=== PATIENT | female | born 1960 | race Caucasian/White ===

== ENCOUNTER 2017-10-09 08:31 | Day surgery (SDC) | payer OTHER ==
[~2017-10-09] VITALS: Ht 167.6 cm; Wt 66.7 kg
[~2017-10-09 08:31] MED LIST: Advil200 M1 PO
== END 2017-10-09 22:49 | disposition home or self-care (01) ==
LOC: ORSCMMR 08:31
PROVIDERS: Internal Medicine Gastroenterology
PROC: 0DBP8ZX Excision of Rectum, Via Natural or Artificial Opening Endoscopic, Diagnostic (ICD-10-PCS; principal; 2017-10-09 09:30)
PROC: 0DBC8ZX Excision of Ileocecal Valve, Via Natural or Artificial Opening Endoscopic, Diagnostic (ICD-10-PCS; principal; 2017-10-09 09:30)
PROC: 0DBN8ZX Excision of Sigmoid Colon, Via Natural or Artificial Opening Endoscopic, Diagnostic (ICD-10-PCS; principal; 2017-10-09 09:30)
DX: K62.5 Hemorrhage of anus and rectum (principal); D12.2 Benign neoplasm of ascending colon; K62.1 Rectal polyp; K63.5 Polyp of colon; K64.4 Residual hemorrhoidal skin tags; K64.8 Other hemorrhoids; K57.30 Diverticulosis of large intestine without perforation or abscess without bleeding; Z86.010 Personal history of colon polyps; F17.210 Nicotine dependence, cigarettes, uncomplicated
CPT/HCPCS: 88305; J7120

== ENCOUNTER → 2021-12-13 | Outpatient (CLI) | payer OTHER ==
[2021-12-15 10:11] LABS: HPV 16 Negative (Negative); HPV 18 Negative (Negative); HPV OTHER HR TYPES Negative (Negative)
== END | disposition home or self-care (01) ==
LOC: LAB SHORT 11:54
PROVIDERS: Student in an Organized Health Care Education/Training Program
DX: Z12.4 Encounter for screening for malignant neoplasm of cervix (principal)
CPT/HCPCS: 87624; G0145

== ENCOUNTER → 2022-01-10 | Outpatient (CLI) | payer OTHER | END | disposition home or self-care (01) | LOC: LAB SHORT 07:43 → PLD 07:43 | DX: D04.61 Carcinoma in situ of skin of right upper limb, including shoulder (principal) | CPT/HCPCS: 88305 ==

== ENCOUNTER → 2022-02-07 | Outpatient (CLI) | payer OTHER ==
[2022-02-07 15:29] LABS: Source, Urine Clean Catch
[2022-02-07 17:21] LABS: Appearance, Urine Clear (Clear); Bilirubin, Urine Neg (Neg); Blood, Urine Neg (Neg); Color, Urine Yellow (P-Yellow); Glucose Qualitative, Urine Neg (Neg); Ketones, Urine 1+ (Neg); Leukocyte Esterase, Urine 1+ (Neg); Nitrite, Urine Neg (Neg); Protein, Urine 2+ (Neg); Specific Gravity, Urine 1.025 (1.003-1.022); Urobilinogen, Urine 1+ (Normal)
[2022-02-07 17:51] LABS: Bacteria Mod /hpf; Red Blood Cells, Urine 0-2 /hpf (0-2); Squamous Epithelial Cells Few /hpf (Few)
== END | disposition home or self-care (01) ==
LOC: LAB SHORT 15:23
PROVIDERS: Obstetrics & Gynecology
DX: N39.3 Stress incontinence (female) (male) (principal)
CPT/HCPCS: 81001

== ENCOUNTER → 2022-04-19 | Outpatient (CLI) | payer OTHER | END | disposition home or self-care (01) | LOC: LAB 08:52 → LAB SHORT 08:52 | DX: Z72.0 Tobacco use (principal) | CPT/HCPCS: 88108 ==

== ENCOUNTER → 2022-04-19 | Outpatient (CLI) | payer OTHER | END | disposition home or self-care (01) | LOC: PLD 10:38 → LAB SHORT 10:38 | DX: N95.0 Postmenopausal bleeding (principal) | CPT/HCPCS: 88305 ==

== ENCOUNTER 2023-06-06 10:14 | Inpatient (IN) | payer OTHER ==
[~2023-06-06] VITALS: Ht 167.6 cm; Wt 71.3 kg
[2023-06-06 10:47] LABS: BASOPHILS ABSOLUTE AUTO 0.08 K/mm3 (0.00-0.23); BASOPHILS PERCENT AUTO 1 % (0-2); EOSINOPHILS ABSOLUTE AUTO 0.12 K/mm3 (0.00-0.68); EOSINOPHILS PERCENT AUTO 2 % (0-6); Hematocrit 44.2 % (33.0-51.0); Hemoglobin 14.6 g/dL (11.5-16.0); IMMATURE GRAN ABSOLUTE AUTO 0.03 K/mm3 (0.00-0.10); IMMATURE GRAN PERCENT AUTO 0 % (0-1); LYMPHOCYTES ABSOLUTE AUTO 0.97 K/mm3 (0.84-5.20); LYMPHOCYTES PERCENT AUTO 12 % (21-46); MONOCYTES ABSOLUTE AUTO 0.14 K/mm3 (0.16-1.47); MONOCYTES PERCENT AUTO 2 % (4-13); Mean Corpuscular HGB 28.6 pg (26.0-34.0); Mean Corpuscular Volume 87 fL (80-100); Mean Platelet Volume 10.3 fL (9.1-12.4); NEUTROPHILS ABSOLUTE AUTO 6.84 K/mm3 (1.96-9.15); NEUTROPHILS PERCENT AUTO 84 % (41-73); Platelet Count 262 K/mm3 (150-400); RDW Coefficient Variation 13.2 % (11.7-14.2); RDW Standard Deviation 41.1 fL (35.1-46.3); White Blood Cell Count 8.18 K/mm3 (4.00-11.30)
[2023-06-06] MEDS ORDERED: STIOLTO RESPIMAT4 G1 (11:27)
[2023-06-06] MEDS ORDERED: Ventolin/Prove6.7 GM INH (11:27)
[2023-06-06] MEDS ORDERED: LORA10ER PO (11:28)
[2023-06-06] MEDS ORDERED: Cyclobenzaprine5 MG (11:28)
[2023-06-06] MEDS ORDERED: MONT10T PO (11:29)
[2023-06-06] MEDS ORDERED: ALBU2.5V5 (11:29)
[2023-06-06 12:18] LABS: Bun/Creatinine Ratio 16.3 (12.0-20.0); Calcium, Blood 9.5 mg/dL (8.5-10.1); Creatinine, Blood 0.98 mg/dL (0.40-1.00)
[2023-06-06 12:19] LABS: Albumin, Blood 4.1 g/dL (3.4-5.0); Albumin/Globulin Ratio 1.2 (0.8-1.8); Bilirubin, Total 0.5 mg/dL (0.1-1.0); Globulin, Blood 3.4 g/dL (2.2-4.0); Total Protein, Blood 7.5 g/dL (6.4-8.2)
[2023-06-06 19:30] VITALS: BP 150/84
[2023-06-06 19:49] LABS: Adenovirus Not Detected (NOT DETECT); Bordetella pertussis Not Detected (NOT DETECT); Chlamydophila pneumoniae Not Detected (NOT DETECT); Coronavirus 229E Not Detected (NOT DETECT); Coronavirus HKU1 Not Detected (NOT DETECT); Coronavirus NL63 Not Detected (NOT DETECT); Coronavirus OC43 Not Detected (NOT DETECT); Human Metapneumovirus Not Detected (NOT DETECT); Human Rhinovirus/Enterovirus Not Detected (NOT DETECT); Influenza A/2009-H1 Not Detected (NOT DETECT); Influenza A/H1 Not Detected (NOT DETECT); Influenza A/H3 Not Detected (NOT DETECT); Influenza B Not Detected (NOT DETECT); Mycoplasma pneumoniae Not Detected (NOT DETECT); Parainfluenza Virus 1 Not Detected (NOT DETECT); Parainfluenza Virus 2 Not Detected (NOT DETECT); Parainfluenza Virus 3 Not Detected (NOT DETECT); Parainfluenza Virus 4 Not Detected (NOT DETECT); Respiratory Syncytial Virus Not Detected (NOT DETECT); SARS-Cov-2 (COVID-19), BioFire Not Detected (NOT DETECT)
[2023-06-07 04:12] VITALS: BP 163/74
--- NOTE | 2023-06-07 06:43 | NUR ---
LATE ENTRY ADMISSION NOTE. PT ARRIVED FROM ER TO SURGICAL FLOOR AT 1925. PT SETTLED AND ORIENTED TO THE ROOM. PT ENDORSES SMOKING AND HAD A BEHAVIORAL TECHNICIAN PRESENT. BEHAVIORAL TECHNICIAN LOCKED IN DRAWER UNTIL IT WAS GIVEN TO DAUGHTER BARBARA TO TAKE HOME. PT WAS ANXIOUS ON ARRIVAL BUT CALMED WITH RAISING THE HOB AND APPLYING O2 VIA NASAL CANULA. PT'S SATS REMAINED ABOVE 90% ON 2 LITERS. PT DENIES CHEST PAIN. PT HAS EXPIRATORY WHEEZES BUT BREATHING IMPROVES WITH SOLU-MEDROL. PT HAS HAD PAIN IN HER RIBS AND BACK FROM COUGHING SOME RELIEF WITH TYLENOL AND KPAD. PT GIVEN ROBITUSSIN FOR COUGH X1. PT RESTED THIS SHIFT WITH EYES CLOSED AND CALL LIGHT IN REACH.
[2023-06-07 07:34] VITALS: BP 162/84
[2023-06-07 14:25] VITALS: BP 126/63
--- NOTE | 2023-06-07 17:43 | NUR ---
SUMMARY PT W/ EXPIRATORY WHEEZES T/O AND NPC T/O THE DAY, DENIED ANY SOB, 2L O2 VIA NC, INDEPENDENT IN ROOM, HAD HOME O2 EVAL TODAY, TOOK A NAP THIS AFTERNOON, NO ACUTE CHANGES THIS SHIFT.
[2023-06-07 19:18] VITALS: BP 142/75
[2023-06-08 03:41] VITALS: BP 162/82
--- NOTE | 2023-06-08 06:27 | NUR ---
PT VSS T/O NIGHT. SATS TRENDING 92% ON 2LO2 NC. LUNGS TIGHT/WHEEZY T/O. PT CONT TO HAVE HACKING NON PROD COUGH. PT DENIES SOB AT REST, DOES BECOME DYPSNEIC W/ACTIVITY AND W/SPEAKING AT TIMES. RT CALLED FOR PRN TX X3 THIS SHIFT. IV SOLUMEDEROL CONT. PT PLEASANT AND COOPERATIVE W/CARE.
[2023-06-08 07:15] VITALS: BP 146/81
[2023-06-08] MEDS ORDERED: ALBU2.5V5 INH (09:49)
[2023-06-08] MEDS ORDERED: Prednisone10 MG PO (09:51)
--- NOTE | 2023-06-08 10:27 | NUR ---
PT C/O SOB AFTER COUGHING EPISODE, DR. REED HERE TO SEE PT, CANCELLED DC ORDERS FOR TODAY, RT CALLED FOR NEB TX, PT PLACED ON CONT. OXIMETRY MONITOR, CONT. TO MONITOR FOR ANY CHANGES.
[2023-06-08 11:01] LABS: Bicarbonate Venous 25.5 mmol/L (24.0-30.0); pH Blood Venous 7.44 (7.34-7.37)
--- NOTE | 2023-06-08 12:30 | NUR ---
PT REPORTS BREATHING "BETTER," APPEARS TO BE IN NO DISTRESS, SATS 97% ON 2L VIA NC, PT STATES SHE WAS ABLE TO EAT AND REST, CONT. TO MONITOR FOR ANY CHANGES.
[2023-06-08 15:28] VITALS: BP 155/75
--- NOTE | 2023-06-08 17:20 | NUR ---
SUMMARY PT HAD SOB AND DYSPNEA THIS AM AND INCREASED COUGHING, CANCELLED DC THIS AM, SEE ORDERS, PT HAD ATIVAN, MG SULFATE, AND 125MG SOLUMEDROL GIVEN, PT REPORTED GOOD RELIEF OF DYSPNEA, PT WAS ABLE TO REST AND EAT, TOOK A NAP THIS AFTERNOON, PT NOW SITTING UP FOR DINNER, DENIES ANY SOB, APPEARS TO BE IN NO DISTRESS, NO OTHER CHANGES THIS SHIFT.
[2023-06-08 19:27] VITALS: BP 141/77
--- NOTE | 2023-06-09 03:50 | NUR ---
SHIFT SUMMARY PT WITH X1 COUGHING FIT T/O NIGHT. TESSALON PEARLS GIVEN PRN FOR NONPRODUCTIVE COUGH. NEBULIZER TREATMENTS PER RT. WHEEZES HEARD ON LEFT LUNG. PT ON 2L O2 VIA NC WITH CONT BIOX IN PLACE. PT DOES GET SOB WITH EXERTION, BUT RECOVERS QUICKLY WITH REST AND IS INDEP IN ROOM. USES CALL LIGHT APPROPRIATELY. PT WANTING TO DISCHARGE HOME TODAY.
[2023-06-09 04:12] LABS: BASOPHILS ABSOLUTE AUTO 0.03 K/mm3 (0.00-0.23); BASOPHILS PERCENT AUTO 0 % (0-2); EOSINOPHILS PERCENT AUTO 0 % (0-6); Hematocrit 42.5 % (33.0-51.0); Hemoglobin 13.6 g/dL (11.5-16.0); IMMATURE GRAN ABSOLUTE AUTO 0.21 K/mm3 (0.00-0.10); IMMATURE GRAN PERCENT AUTO 2 % (0-1); LYMPHOCYTES ABSOLUTE AUTO 1.85 K/mm3 (0.84-5.20); LYMPHOCYTES PERCENT AUTO 14 % (21-46); MONOCYTES ABSOLUTE AUTO 0.83 K/mm3 (0.16-1.47); MONOCYTES PERCENT AUTO 6 % (4-13); Mean Corpuscular HGB 28.6 pg (26.0-34.0); Mean Corpuscular Volume 90 fL (80-100); Mean Platelet Volume 10.6 fL (9.1-12.4); NEUTROPHILS ABSOLUTE AUTO 10.63 K/mm3 (1.96-9.15); NEUTROPHILS PERCENT AUTO 79 % (41-73); Platelet Count 243 K/mm3 (150-400); RDW Coefficient Variation 13.2 % (11.7-14.2); RDW Standard Deviation 43.7 fL (35.1-46.3); Red Blood Cell Count 4.75 M/mm3 (3.80-5.20); White Blood Cell Count 13.55 K/mm3 (4.00-11.30)
[2023-06-09 04:49] LABS: Albumin, Blood 3.3 g/dL (3.4-5.0); Bilirubin, Total 0.1 mg/dL (0.1-1.0); Bun/Creatinine Ratio 29.3 (12.0-20.0); Calcium, Blood 9.3 mg/dL (8.5-10.1); Creatinine, Blood 0.79 mg/dL (0.40-1.00); Globulin, Blood 3.2 g/dL (2.2-4.0); Potassium, Blood 4.2 mmol/L (3.5-5.5); Total Protein, Blood 6.5 g/dL (6.4-8.2)
[2023-06-09 05:12] VITALS: BP 149/79
[2023-06-09 07:19] VITALS: BP 157/99
--- NOTE | 2023-06-09 09:42 | NUR ---
PT A/O, ANSWERS QUESTIONS APPROPRIATLY. PT DENIES SOB OR ANY INCREASED WOB. PT REFUSED ALL AM MEDS SHE IS GOING HOME THIS AM.
--- NOTE | 2023-06-09 12:44 | NUR ---
DISCHARGE PT DISCHARGED HOME FROM UNIT AT APROX 1205. PT GIVEN WRITTEN AND VERBAL DC INSTRUCTIONS AND VERB ALIZED UNDERSTANDING. IV REMOVED, HOME O2 APPLIED, PT VERBALIZED UNDERSTANDING OF USE OF PORTABLE O2. WC TO CAR. NEW RX'S FAXED TO [facility].
== END 2023-06-09 12:05 | disposition home or self-care (01) | DRG 189 ==
LOC: ER 10:14 → SURS 10:15 → ERHOLD 10:15 → SURS 19:20
PROVIDERS: Student in an Organized Health Care Education/Training Program; ADMIT Family Medicine
DX: J96.01 Acute respiratory failure with hypoxia (principal); J43.9 Emphysema, unspecified; G89.29 Other chronic pain; M79.603 Pain in arm, unspecified; Z66 Do not resuscitate; M54.9 Dorsalgia, unspecified; Z20.822 Contact with and (suspected) exposure to COVID-19; F17.210 Nicotine dependence, cigarettes, uncomplicated; Z88.0 Allergy status to penicillin; Z91.013 Allergy to seafood
CPT/HCPCS: 0202U; 36415; 71045; 71046; 76705; 80053; 82803; 83690; 84484; 85025; 93005; 93010; 94640; 94644; 94664; 94760; 94761; 94762; 96374; 96375; 96376; 99285-25; A9270; J1650; J2060; J2405; J2930; J3010; J3475; J7626

== ENCOUNTER 2024-10-11 16:04 | Emergency (ER) | payer OTHER ==
[~2024-10-11] VITALS: Ht 170.2 cm; Wt 62.1 kg
[~2024-10-11 16:04] MED LIST changes: +ALBU2.5V5; +ALBU2.5V5 INH; +Cyclobenzaprine5 MG; +LORA10ER PO; +MONT10T PO; +Prednisone10 MG PO; +STIOLTO RESPIMAT4 G1; +Ventolin/Prove6.7 GM INH
[2024-10-11] MEDS ORDERED: Ipratropium Bromide INH 0.02% 0.5 mg/2.5ML Vial INH SCH (16:30)
[2024-10-11] MEDS ORDERED: Albuterol 2.5 MG/3 ML VIAL INH SCH ×2 (16:30→19:30)
[2024-10-11 16:55] LABS: BASOPHILS ABSOLUTE AUTO 0.04 K/mm3 (0.00-0.23); BASOPHILS PERCENT AUTO 1 % (0-2); EOSINOPHILS PERCENT AUTO 0 % (0-6); Hematocrit 41.9 % (33.0-51.0); Hemoglobin 13.9 g/dL (11.5-16.0); IMMATURE GRAN ABSOLUTE AUTO 0.01 K/mm3 (0.00-0.10); IMMATURE GRAN PERCENT AUTO 0 % (0-1); LYMPHOCYTES ABSOLUTE AUTO 0.76 K/mm3 (0.84-5.20); LYMPHOCYTES PERCENT AUTO 16 % (21-46); MONOCYTES ABSOLUTE AUTO 0.65 K/mm3 (0.16-1.47); MONOCYTES PERCENT AUTO 14 % (4-13); Mean Corpuscular HGB 28.7 pg (26.0-34.0); Mean Corpuscular HGB Conc 33.2 g/dL (31.5-36.5); Mean Corpuscular Volume 87 fL (80-100); Mean Platelet Volume 10.8 fL (9.1-12.4); NEUTROPHILS ABSOLUTE AUTO 3.26 K/mm3 (1.96-9.15); NEUTROPHILS PERCENT AUTO 69 % (41-73); Platelet Count 183 K/mm3 (150-400); RDW Coefficient Variation 13.9 % (11.7-14.2); RDW Standard Deviation 44.8 fL (35.1-46.3); Red Blood Cell Count 4.84 M/mm3 (3.80-5.20); White Blood Cell Count 4.72 K/mm3 (4.00-11.30)
[2024-10-11 17:13] LABS: Albumin, Blood 3.7 g/dL (3.4-5.0); Bilirubin, Total 0.3 mg/dL (0.1-1.0); Bun/Creatinine Ratio 20.3 (12.0-20.0); Creatinine, Blood 0.74 mg/dL (0.40-1.00); Globulin, Blood 3.6 g/dL (2.2-4.0); Potassium, Blood 3.9 mmol/L (3.5-5.5); Total Protein, Blood 7.3 g/dL (6.4-8.2)
[2024-10-11 18:49] LABS: Influenza B, PCR NEGATIVE (NEGATIVE); Resp Syncytial Virus, PCR NEGATIVE (NEGATIVE); SARS-Cov-2 (COVID-19) PCR, MMC NEGATIVE (NEGATIVE)
[2024-10-11 19:11] LABS: Influenza A, PCR POSITIVE (NEGATIVE)
[2024-10-11] MEDS ORDERED: Dexamethasone Sod Phos 10 MG/ML 1ML VIAL IV ONE (19:30)
[2024-10-11 20:00] VITALS: BP 116/60
== END 2024-10-11 21:22 | disposition home or self-care (01) ==
LOC: ER 16:04
PROVIDERS: Physician Assistant
DX: J44.1 Chronic obstructive pulmonary disease with (acute) exacerbation (principal); J10.1 Influenza due to other identified influenza virus with other respiratory manifestations; I21.9 Acute myocardial infarction, unspecified; F17.200 Nicotine dependence, unspecified, uncomplicated; Z88.0 Allergy status to penicillin; Z91.013 Allergy to seafood; Z79.51 Long term (current) use of inhaled steroids; Z88.9 Allergy status to unspecified drugs, medicaments and biological substances; Z79.891 Long term (current) use of opiate analgesic; Z79.52 Long term (current) use of systemic steroids
CPT/HCPCS: 0241U; 71046; 80053; 83880; 85025; 93005; 93010; 94640; 94644; 94664; 96374; 99285-25; A4648; J1100